=== PATIENT | female | born 1935 | race Caucasian/White ===

== ENCOUNTER 2023-07-10 10:10 | Outpatient (CLI) | payer MEDICARE, SELFPAY | END 2023-07-10 10:11 | disposition home or self-care (01) | LOC: AMB 07-11 15:20 | PROVIDERS: PCP Internal Medicine; Visit Provider Emergency Medicine | DX: R41.82 Altered mental status, unspecified (principal); R53.1 Weakness | CPT/HCPCS: A0425; A0429 ==

== ENCOUNTER 2023-07-10 10:52 | Inpatient (IN) | payer MEDICARE, SELFPAY ==
[2023-07-10] VITALS (20 sets, daily range): BP systolic 125–162; BP diastolic 72–89; PULSE 84–100; RESP 14–20; TEMP 36.4–37.2; O2SAT 93–99; BMI 22.7
--- NOTE | 2023-07-10 11:03 | CRLHL7_ITS ---
For Patients: As a result of the Century Cures Act, medical imaging exams and procedure reports are released immediately into your electronic medical record. You may view this report before your referring provider. If you have questions, please contact your health care provider. INDICATION: Fall, pain TECHNIQUE: Chest 1 view COMPARISON: None FINDINGS: Cardiac silhouette is enlarged. There is tortuosity of the aorta. Vascular calcifications are present. Artifact overlies the left upper arm. The clavicles are intact. Lungs clear. IMPRESSION: No acute findings. Dictated by Ky Odonnell MD @ 07/10/2023 12:42:54 PM (Electronically Signed)
--- NOTE | 2023-07-10 11:03 | CRLHL7_ITS ---
For Patients: As a result of the Century Cures Act, medical imaging exams and procedure reports are released immediately into your electronic medical record. You may view this report before your referring provider. If you have questions, please contact your health care provider. Indication: Fall Technique: AP pelvis Comparison: None Findings: No fracture is present. Spurring at the iliac crests. Degenerative changes lower lumbar spine. Mild spurring both hip joints. Intact pubic rami. Impression: No sign of acute injury. Dictated by Ky Odonnell MD @ 07/10/2023 12:42:07 PM (Electronically Signed)
--- NOTE | 2023-07-10 11:04 | CRLHL7_ITS ---
For Patients: As a result of the Century Cures Act, medical imaging exams and procedure reports are released immediately into your electronic medical record. You may view this report before your referring provider. If you have questions, please contact your health care provider. INDICATION: falls, pain COMPARISON: none TECHNIQUE: A CT volumetric acquisition was performed of the brain without IV contrast. Please note that all CT scans at this facility use dose modulation, iterative reconstruction, and/or weight-based dosing when appropriate to reduce radiation dose to as low as reasonably achievable. 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 Mild bilateral sinus disease in the maxillary sinuses with mucosal thickening. There is no fracture. No hemorrhage. No midline shift or mass effect. No hydrocephalus. Chronic patchy areas of decreased attenuation in the white matter. IMPRESSION: No intracranial hemorrhage. Please note that all CT scans at this facility use dose modulation, iterative reconstruction, and/or weight-based dosing when appropriate to reduce radiation dose to as low as reasonably achievable. Dictated by Ky Odonnell MD @ 07/10/2023 12:46:22 PM (Electronically Signed)
--- NOTE | 2023-07-10 11:23 | ED.FALL ---
HPI - Fall General Date Seen: 07/10/23 Chief Complaint: Fall/Minor Trauma Stated Complaint: Fall Time Seen by Provider: 07/10/23 11:01 Source: patient, EMS, RN notes reviewed and old records reviewed Mode of arrival: EMS Limitations: altered mental status History of Present Illness HPI Narrative: Patient is 88-year-old female who presents here from the [facility] assisted living, with a history of dementia who was more confused and falls. She comes in by EMS, glucose was 140. She complains to me that she is in no pain, history of the falls, both yesterday and today. She was actually found on the floor. Was probably there all night. EMS did get her up and walker to the caught. And brought her in here. She tells me she does not really remember what went on, denies being in any pain currently. No history of fevers chills nausea vomiting. History is obviously MD complaint: fall Fall from: standing Fall witnessed: no Place fall occurred: home Prolonged down time: yes Context: history of frequent falls Related Data Allergies Allergy/AdvReac Type Severity Reaction Status Date / Time codeine Allergy Verified 07/10/23 11:12 Review of Systems Status of ROS: Reports: 10 or more systems reviewed and unremarkable except as noted in History and below PFSH PFS Social History Smoking Status: Unknown if ever smoked Exam Narrative: Exam Narrative: Patient is seen in room 3 she appears to be in no distress, pleasant alert. Speaking to me normally, no obvious facial droops. No evidence of any trauma over head, or neck. Her pupils are equal round reactive and she tracks normally and follows my commands. Mouth opening is normal, her chest is good air entry bilaterally, kyphosis is noted. Heart sounds no clicks murmurs or gallops. Abdomen shows scars from previous open cholecystectomy, lower incision, no tenderness to palpation, bowel sounds are normal, slightly obese abdomen. Pelvis is normal stable she has bruising on the right lateral hip region, and also over her medial side of her upper right leg. Moves her hips however noted through normal range of motion of flexion internal external rotation. She is incontinent of stool. Const: Vital Signs, click to edit/add: Vital Signs - 24 hr 07/10/23 11:06 07/10/23 11:29 07/10/23 11:30 Temperature 98.9 F Pulse Rate 86 88 Pulse Rate [Pulse Oximeter] 88 Respiratory Rate 14 Blood Pressure Blood Pressure [Ri ght Upper Arm] 145/89 H Pulse Oximetry 97 97 96 Oxygen Delivery Me thod Room Air 07/10/23 11:47 07/10/23 11:50 07/10/23 12:00 Temperature Pulse Rate 86 86 85 Pulse Rate [Pulse Oximeter] Respiratory Rate Blood Pressure 149/73 H Blood Pressure [Ri ght Upper Arm] Pulse Oximetry 98 98 97 Oxygen Delivery Me thod 07/10/23 12:01 07/10/23 12:02 07/10/23 12:22 Temperature Pulse Rate 84 87 90 Pulse Rate [Pulse Oximeter] Respiratory Rate Blood Pressure 162/76 H Blood Pressure [Ri ght Upper Arm] Pulse Oximetry 97 97 96 Oxygen Delivery Me thod 07/10/23 12:30 07/10/23 12:45 07/10/23 13:53 Temperature Pulse Rate 87 87 92 Pulse Rate [Pulse Oximeter] Respiratory Rate Blood Pressure Blood Pressure [Ri ght Upper Arm] Pulse Oximetry 97 95 99 Oxygen Delivery Me thod 07/10/23 13:57 07/10/23 14:00 07/10/23 14:01 Temperature Pulse Rate 93 89 93 Pulse Rate [Pulse Oximeter] Respiratory Rate Blood Pressure 140/72 H 125/81 Blood Pressure [Ri ght Upper Arm] Pulse Oximetry 97 97 98 Oxygen Delivery Me thod 07/10/23 14:17 07/10/23 15:01 07/10/23 16:01 Temperature Pulse Rate 100 Pulse Rate [Pulse Oximeter] Respiratory Rate Blood Pressure 131/84 132/77 Blood Pressure [Ri ght Upper Arm] Pulse Oximetry 96 Oxygen Delivery Me thod Documenting provider has reviewed patient's vital signs: yes Course Course Hospital Course: Discussed patient with the family, and also hospitalist, with med her with a diagnosis of weakness, falls, and decompensation, she is requiring more care than she can get an assisted living, discussed with them her POLST await results of urine catheterization Vital Signs Vital signs: Initial Vital Signs Temperature 98.9 F 07/10/23 11:06 Temperature Source Temporal Artery Scan 07/10/23 11:06 Pulse Rate 88 07/10/23 11:06 Respiratory Rate 14 07/10/23 11:06 Blood Pressure 145/89 H 07/10/23 11:06 Blood Pressure Mean 107 H 07/10/23 11:06 Blood Pressure Position Semi-Fowlers 07/10/23 11:06 Pulse Oximetry 97 07/10/23 11:06 Oxygen Delivery Method Room Air 07/10/23 11:06 Vital Signs Temperature 98.9 F 07/10/23 11:06 Pulse Rate 88 07/10/23 11:06 Respiratory Rate 14 07/10/23 11:06 Blood Pressure 145/89 H 07/10/23 11:06 Pulse Oximetry 97 07/10/23 11:06 Oxygen Delivery Method Room Air 07/10/23 11:06 Temperature 98.9 F 07/10/23 11:06 Pulse Rate 100 07/10/23 14:17 Respiratory Rate 14 07/10/23 11:06 Blood Pressure 132/77 07/10/23 16:01 Pulse Oximetry 96 07/10/23 14:17 Oxygen Delivery Method Room Air 07/10/23 11:06 MDM - Fall MDM Narrative Medical decision making narrative: Multiple differential diagnoses were considered for altered mental status. The life-threatening differential diagnosis considered include: Meningitis/encephalitis, bacteremia, subdural, cerebrovascular accident, SAH, and hypertensive encephalopathy. Other differential diagnosis included include medication effect, hypoxia, hypoglycemia, hypercalcemia, hypo or hypernatremia, hypothyroidism, hepatic encephalopathy, carbon monoxide poisoning, UTI, pneumonia, depression, seizure, as well as other etiologies. Medical Records Attestation: I reviewed the patient's medical records. Lab Data Attestation: I reviewed the patient's lab results. Labs: Lab Results 07/10/23 07/10/23 Range/Units 11:55 12:07 WBC 10.44 (4.50-11.00) K/uL RBC 4.81 (4.00-5.20) m/uL Hgb 15.0 (12.0-16.0) gm/dL Hct 44.7 (33.0-51.0) % MCV 93 (80-100) fL MCH 31 (26-34) pg MCHC 34 (32-36) gm/dL RDW Coeff of Mookie 12.3 (11.5-15.5) % Plt Count 339 (140-440) K/uL Neut % (Auto) 79.4 H (42.0-72.0) % Lymph % (Auto) 10.0 L (20-44) % [place] % (Auto) 9.4 (0.0-11.0) % Eos % (Auto) 0.6 (0.0-7.0) % Baso % (Auto) 0.2 (0.0-3.0) % Neut # (Auto) 8.30 H (1.7-7.0) K/uL Lymph # (Auto) 1.00 (0.90-2.90) K/uL [place] # (Auto) 1.00 H (0.00-0.90) K/UL Eos # (Auto) 0.06 (0.00-0.50) K/uL Baso # (Auto) 0.02 (0.00-0.30) K/uL Abs Immat Gran (auto) 0.04 (0.00-0.30) K/uL Imm/Tot Granulo (auto) 0.4 % Sodium 140 (135-149) mmol/L Potassium 3.7 (3.6-5.1) mmol/L Chloride 100 (96-114) mmol/L Carbon Dioxide 30 (20-32) mmol/L BUN 21 (7-30) mg/dL Creatinine 0.5 (0.5-1.5) mg/dL Estimated Creat Clear 32.79 Estimated GFR 91 ml/min Glucose 109 (60-115) mg/dL Lactate 1.6 (0.5-1.9) mmol/L Calcium 9.3 (8.4-10.6) mg/dL Total Creatine Kinase 2169 H (41-117) U/L Imaging Data CT scan - head: Attestation: I have reviewed the pertinent imaging results. My impression: Negative head CT, chest x-ray, pelvic x-ray Radiologist's impression: Patient: MARISOL BRADFORD Facility:?[facility] Patient ID:?[id number] Site Patient ID:?[id number]. Site :?[id number] Study:?XRay Shoulder Left -07/10/2023 1:16:00 PM Ordering Physician:Kurt Davies Final Report: Indication: Trauma and pain Technique: Left shoulder 3 views. Comparison: None Findings: Narrowing and spurring are present at the acromioclavicular joint. Chronic density adjacent to the greater tuberosity. Osteopenia. No fracture. Impression: No sign of acute injury. Dictated by Ky Odonnell MD @ 07/10/2023 1:22:12 PM (Electronic Signature) atient: [facility] Facility:?[facility] Patient ID:?[id number] Site Patient ID:?[id number]. Site :?[id number] Study:?XRay Extremity Right FEMUR-07/10/2023 1:16:22 PM Ordering Physician:Kurt Davies Final Report: Indication: Fall, pain Technique: Two views right femur Comparison: None Findings: Osteopenia. No fracture. Degenerative changes. Chronic distal quadriceps tendinosis. No joint effusion. Impression: No sign of acute injury. Dictated by Ky Odonnell MD @ 07/10/2023 1:22:56 PM (Electronic Signature) Patient: [facility] Facility:?[facility] Patient ID:?[id number] Site Patient ID:?[id number]. Site :?[id number] Study:?XRay Pelvis 1 VIEW-07/10/2023 11:47:07 AM Ordering Physician:Kurt Davies Final Report: Indication: Fall Technique: AP pelvis Comparison: None Findings: No fracture is present. Spurring at the iliac crests. Degenerative changes lower lumbar spine. Mild spurring both hip joints. Intact pubic rami. Impression: No sign of acute injury. Dictated by Ky Odonnell MD @ 07/10/2023 12:42:07 PM (Electronic Signature) Patient: [facility] Facility:?[facility] Patient ID:?[id number] Site Patient ID:?[id number]. Site :?[id number] Study:?XRay Chest 1 VIEW-07/10/2023 11:47:30 AM Ordering Physician:Kurt Davies Final Report: INDICATION: Fall, pain TECHNIQUE: Chest 1 view COMPARISON: None FINDINGS: Cardiac silhouette is enlarged. There is tortuosity of the aorta. Vascular calcifications are present. Artifact overlies the left upper arm. The clavicles are intact. Lungs clear. IMPRESSION: No acute findings. Dictated by Ky Odonnell MD @ 07/10/2023 12:42:54 PM (Electronic Signature) Patient: MARISOL BRADFORD Facility:?[facility] Patient ID:?[id number] Site Patient ID:?[id number]. Site :?[id number] Study:?CT Head w/o-07/10/2023 11:49:10 AM Ordering Physician:Kurt Davies Final Report: INDICATION: falls, pain COMPARISON: none TECHNIQUE: A CT volumetric acquisition was performed of the brain without IV contrast. Please note that all CT scans at this facility use dose modulation, iterative reconstruction, and/or weight-based dosing when appropriate to reduce radiation dose to as low as reasonably achievable. 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 Mild bilateral sinus disease in the maxillary sinuses with mucosal thickening. There is no fracture. No hemorrhage. No midline shift or mass effect. No hydrocephalus. Chronic patchy areas of decreased attenuation in the white matter. IMPRESSION: No intracranial hemorrhage. Please note that all CT scans at this facility use dose modulation, iterative reconstruction, and/or weight-based dosing when appropriate to reduce radiation dose to as low as reasonably achievable. Dictated by Ky Odonnell MD Discharge Plan Discharge Clinical Impression: Falls frequently, Weakness, Dementia Patient Disposition: Admitted As Observation Condition: Stable Follow Up/Referrals: Libertad Cuba MD [Primary Care Provider] -
[2023-07-10 12:00] LABS: Lactate* 1.6 mmol/L (0.5-1.9)
[2023-07-10] MEDS: 0.9 % SODIUM CHLORIDE 1000 ml 1,000 ML IV (12:00)
--- NOTE | 2023-07-10 12:09 | ED.NURSE ---
Pt has approx palm-sized bruise on her inner Right thigh. Pt has redness on bilateral anterior knees.
[2023-07-10 12:16] LABS: Basophils Absolute Auto 0.02 K/uL (0.00-0.30); Basophils Percent Auto 0.2 % (0.0-3.0); Eosinophils Absolute Auto 0.06 K/uL (0.00-0.50); Eosinophils Percent Auto 0.6 % (0.0-7.0); Hematocrit 44.7 % (33.0-51.0); Immature Granulocytes Abs Auto 0.04 K/uL (0.00-0.30); Immature Granulocytes Pct Auto 0.4 %; Mean Corpuscular HGB Conc 34 gm/dL (32-36); Mean Corpuscular Hemoglobin 31 pg (26-34); Mean Corpuscular Volume 93 fL (80-100); Monocytes Percent Auto 9.4 % (0.0-11.0); Neutrophils Percent Auto 79.4 % (42.0-72.0); Platelet Count* 339 K/uL (140-440); RDW Coefficient of Variation % 12.3 % (11.5-15.5); Red Blood Count 4.81 m/uL (4.00-5.20); White Blood Count* 10.44 K/uL (4.50-11.00)
--- NOTE | 2023-07-10 12:24 | ED.NURSE ---
Addendum entered by Luis Manuel Garcia RN 07/10/23 13:05: notified of findings. Original Note: Dental Chair Assembler noted that pt had dried stool on right side of mid-back, on bottom, on bilateral calves, and between toes of right foot. Dried stool debris cleaned off of pt with shagufta wipes and washcloths. Small area of redness noted on back of pt's Right shoulder, additional small area of bruising noted on outside of pt's Right thigh, and moderate area of redness noted on back of pt's Left shoulder. Pt did complain of pain in back and Left shoulder when she was turned and cleaned.
[2023-07-10 12:28] LABS: Slide Review Reflex No
[2023-07-10 12:33] LABS: Chloride* 100 mmol/L (96-114); Potassium* 3.7 mmol/L (3.6-5.1); Sodium* 140 mmol/L (135-149)
--- NOTE | 2023-07-10 12:35 | ED.NURSE ---
Pt's daughter at bedside.
[2023-07-10 12:36] LABS: Blood Urea Nitrogen* 21 mg/dL (7-30); Calcium* 9.3 mg/dL (8.4-10.6); Carbon Dioxide* 30 mmol/L (20-32); Creatinine* 0.5 mg/dL (0.5-1.5); Est. Creatinine Clearance* 32.79; Estimated Glomerular Filt Rate 91 ml/min; Glucose* 109 mg/dL (60-115)
[2023-07-10 12:44] LABS: Creatine Kinase* 2169 U/L (41-117)
--- NOTE | 2023-07-10 12:45 | CRLHL7_ITS ---
For Patients: As a result of the Cures Act, medical imaging exams and procedure reports are released immediately into your electronic medical record. You may view this report before your referring provider. If you have questions, please contact your health care provider. Indication: Fall, pain Technique: Two views right femur Comparison: None Findings: Osteopenia. No fracture. Degenerative changes. Chronic distal quadriceps tendinosis. No joint effusion. Impression: No sign of acute injury. Dictated by Ky Odonnell MD @ 07/10/2023 1:22:56 PM (Electronically Signed)
--- NOTE | 2023-07-10 12:45 | CRLHL7_ITS ---
For Patients: As a result of the Century Cures Act, medical imaging exams and procedure reports are released immediately into your electronic medical record. You may view this report before your referring provider. If you have questions, please contact your health care provider. Indication: Trauma and pain Technique: Left shoulder 3 views. Comparison: None Findings: Narrowing and spurring are present at the acromioclavicular joint. Chronic density adjacent to the greater tuberosity. Osteopenia. No fracture. Impression: No sign of acute injury. Dictated by Ky Odonnell MD @ 07/10/2023 1:22:12 PM (Electronically Signed)
--- NOTE | 2023-07-10 13:59 | P.IMHP_ITS ---
Hospitalist- H&P: HPI History of Present Illness Date Seen: 07/10/23 Chief complaint: Fall Narrative: Teresa Sellers is a 88 year old female with past medical history of dementia presenting for evaluation of fall. hx obtained from chart review. Per report patient had unwitnessed fall last night; unsure if she hit her head. She was too weak to get up. She presented to ED where CT head, Xray left should, Xray pelvis, Xray right femur, CXR showed no acute findings. She was admitted for further evaluation. Ultimately her UA was positive for bacteruria. She was started on ceftriaxone. Family believe she needs SNF and lont term NH placement ultimately. Study:?XRay Shoulder Left -07/10/2023 1:16:00 PM Impression: No sign of acute injury. Study:?XRay Extremity Right FEMUR-07/10/2023 1:16:22 PM Impression: No sign of acute injury. Study:?XRay Pelvis 1 VIEW-07/10/2023 11:47:07 AM Findings: No fracture is present. Spurring at the iliac crests. Degenerative changes lower lumbar spine. Mild spurring both hip joints. Intact pubic rami. Impression: No sign of acute injury. Study:?XRay Chest 1 VIEW-07/10/2023 11:47:30 AM IMPRESSION: No acute findings. Study:?CT Head w/o-07/10/2023 11:49:10 AM IMPRESSION: No intracranial hemorrhage. Review of Systems Status of ROS: Reports: unobtainable due to medical condition PFSH PFS Social History What is your current living situation?: I presently have a place to live Problems where you live: no known problems Problems where you live details: NA In the past 12 months, utilities in danger of being shut off: no In the past 12 mos, have been you worried that your food would run out before you had money to buy more?: never true In the past 12 mos, the food you bought just didn't last and you didn't have money to buy more?: never true Highest level of school completed/degree received: 12th grade, no diploma Smoking Status: Former smoker What tobacco products do you use: cigarettes Smoking quit date/years: >15 years ago Do you use any of these nicotine containing products: None Second hand tobacco smoke exposure: No How often do you have a drink containing alcohol: 4 or more times a week Alcohol type: beer Alcohol type details: Rommel Coats How many standard drinks containing alcohol do you have on a typical day: 1 or 2 How often do you have six or more drinks on one occasion: Never AUDIT-C Alcohol total score: 4 Non-prescribed substance use: denies use Caffeine: Yes How often does anyone, including family, friends and others, physically hurt you : never How often does anyone, including family, friends and others, insult or talk down to you: never How often does anyone, including family, friends and others, threaten you with harm: never How often does anyone, including family, friends and others, scream or curse at you: never service: No Meds Home Medications and Allergies Home Medications Medication Instructions Recorded Confirmed Type No Known Home Medications 07/10/23 07/10/23 History Allergies Allergy/AdvReac Type Severity Reaction Status Date / Time codeine Allergy Verified 07/10/23 11:12 Exam Narrative: Exam Narrative: Gen: no acute distress HEENT: NCAT EOMI mmm Neck: Supple CV: RRR normal s1 s2 Lungs: CTAB Abd: Soft,nt, nd Neuro: Alert, oriented, CN grossly intact; nonfocal screening?exam Psych: appropriate affect MSK: age appropriate muscle mass Skin; Warm, dry no rash on face Const: Vital Signs, click to edit/add: Vital Signs - 24 hr 07/10/23 11:06 07/10/23 11:29 07/10/23 11:30 Temperature 98.9 F Pulse Rate 86 88 Pulse Rate [Pulse Oximeter] 88 Respiratory Rate 14 Blood Pressure Blood Pressure [Ri ght Upper Arm] 145/89 H Pulse Oximetry 97 97 96 Oxygen Delivery Me thod Room Air 07/10/23 11:47 07/10/23 11:50 07/10/23 12:00 Temperature Pulse Rate 86 86 85 Pulse Rate [Pulse Oximeter] Respiratory Rate Blood Pressure 149/73 H Blood Pressure [Ri ght Upper Arm] Pulse Oximetry 98 98 97 Oxygen Delivery Me thod 07/10/23 12:01 07/10/23 12:02 07/10/23 12:22 Temperature Pulse Rate 84 87 90 Pulse Rate [Pulse Oximeter] Respiratory Rate Blood Pressure 162/76 H Blood Pressure [Ri ght Upper Arm] Pulse Oximetry 97 97 96 Oxygen Delivery Me thod 07/10/23 12:30 07/10/23 12:45 Temperature Pulse Rate 87 87 Pulse Rate [Pulse Oximeter] Respiratory Rate Blood Pressure Blood Pressure [Ri ght Upper Arm] Pulse Oximetry 97 95 Oxygen Delivery Me od Hospitalist - H&P: Result Labs Labs: Short CBC 07/10/23 Range/Units 12:07 WBC 10.44 (4.50-11.00) K/uL Hgb 15.0 (12.0-16.0) gm/dL Hct 44.7 (33.0-51.0) % Plt Count 339 (140-440) K/uL BMP 07/10/23 12:07 Sodium 140 Potassium 3.7 Chloride 100 Carbon Dioxide 30 BUN 21 Creatinine 0.5 Glucose 109 Calcium 9.3 Cardiac Enzymes 07/10/23 Range/Units 12:07 Total Creatine Kinase 2169 H (41-117) U/L Assessment and Plan Assessment and plan (1) UTI (urinary tract infection): Status: Acute (2) Falls frequently: Status: Acute (3) Rhabdomyolysis: Status: Acute (4) Dementia: Status: Acute (5) Weakness: Status: Acute Plan Assessment Teresa Sellers is a 88 year old female with past medical history of dementia presenting for evaluation of fall. hx obtained from chart review. Per report patient had unwitnessed fall last night; unsure if she hit her head. She was too weak to get up. She presented to ED where CT head, Xray left should, Xray pelvis, Xray right femur, CXR showed no acute findings. She was admitted for further evaluation. Ultimately her UA was positive for bacteruria. She was started on ceftriaxone. Family believe she needs SNF and lont term NH placement ultimately. 1. Generalized weakness, frequent falls, suspected UTI 2. Acute Rhabdo Plan -start ceftriaxone -f/u UCx -IVF -trend CK -PT, OT, SW consult Code-DNR/DNI DVT ppx -heparin subq
[2023-07-10 16:03] LABS: Appearance Urine Slightly Cloudy (Clear); Bilirubin Urine Negative (Negative); Blood Urine 2+ (Negative); Color Urine Yellow (Yellow); Glucose Urine Negative (Negative); Ketones Urine 3+ (Negative); Leukocyte Esterase Urine Trace (Negative); Nitrite Urine Positive (Negative); Protein Urine 2+ (Negative); Specific Gravity Urine >= 1.030 (1.000-1.030); Urobilinogen Urine 0.2 (0.2-1.0); pH Urine 5.5 (5.0-8.5)
[2023-07-10 16:25] LABS: Amorphous Sediment Urine Moderate; Bacteria Urine Moderate; RBC Urine 0-2 (0-2); Squamous Epithelial Cell Urine Moderate (None-Few); WBC Urine 25-50 (0-5)
--- NOTE | 2023-07-10 16:32 | ED.NURSE ---
Report called to M/S RN.
--- NOTE | 2023-07-10 18:30 | PC.NURSE ---
End of Shift: Pt admitted to Med Surg via ED d/t fall at AL. Pt was reportedly on the ground for numerous hours before being found. Skin breakdown noted on left shoulder, right shoulder, bilateral knees, bruising inside right thigh from a previous fall. Pt is alert to self but confused at other times. Unaware of surroundings and who people are. Pleasantly confused. IV in right wrist placed by ED, patent and intact. Pt's family at bedside. Pt transfers with walker, gait belt and 2 assist depending on how weak she is. Pt's daughter reports confusion worsening over the last two months. Tolerating regular diet well. One ambulation to toilet, no void or BM.
[2023-07-10] MEDS: cefTRIAXone 1 GM in 0.9 % SODIUM CHLORIDE Mini-bag 100 ML IVPB (19:33)
[2023-07-10] MEDS: SODIUM CHLORIDE 0.9 % (FLUSH) 10 ML SYRINGE 5 ML IVF (20:15)
[2023-07-10] MEDS: 0.9 % SODIUM CHLORIDE 1000 ml 1,000 ML 125 ML IV (23:23)
[2023-07-10] MEDS: 0.9 % SODIUM CHLORIDE 1000 ml 1,000 ML 500 ML IV (23:23)
[2023-07-10] MEDS: HEPARIN 5,000 UNIT/0.5 ML INJ 5000 UNIT SUBCUT (23:33)
[2023-07-11] VITALS (7 sets, daily range): BP systolic 132–179; BP diastolic 65–85; PULSE 84–89; RESP 18–22; TEMP 36.6–36.9; O2SAT 93–99
[2023-07-11 06:43] LABS: Basophils Absolute Auto 0.03 K/uL (0.00-0.30); Basophils Percent Auto 0.4 % (0.0-3.0); Eosinophils Absolute Auto 0.13 K/uL (0.00-0.50); Eosinophils Percent Auto 1.7 % (0.0-7.0); Hematocrit 37.3 % (33.0-51.0); Hemoglobin* 12.4 gm/dL (12.0-16.0); Immature Granulocytes Abs Auto 0.03 K/uL (0.00-0.30); Immature Granulocytes Pct Auto 0.4 %; Lymphocytes Percent Auto 16.4 % (20-44); Mean Corpuscular HGB Conc 33 gm/dL (32-36); Mean Corpuscular Hemoglobin 32 pg (26-34); Mean Corpuscular Volume 95 fL (80-100); Monocytes Percent Auto 8.9 % (0.0-11.0); Neutrophils Percent Auto 72.2 % (42.0-72.0); Platelet Count* 298 K/uL (140-440); RDW Coefficient of Variation % 12.8 % (11.5-15.5); Red Blood Count 3.93 m/uL (4.00-5.20); White Blood Count* 7.76 K/uL (4.50-11.00)
--- NOTE | 2023-07-11 06:47 | PC.NURSE ---
End of shift: Alert to self. VSS w/ sats >90% on RA. Denies pain. A1 w/ walker and gait belt. Turn and repo while in bed. Had 1 large inc loose stool. Pt had one wet brief with minimal amount of urine in it. Bladder scanned at 0345 for 553ml. Straight cathed for 550ml at 0345. Pt was able to sleep throughout the night. Bed alarm in place.
[2023-07-11 07:01] LABS: Slide Review Reflex No
[2023-07-11 07:02] LABS: Chloride* 109 mmol/L (96-114); Sodium* 139 mmol/L (135-149)
[2023-07-11 07:05] LABS: Blood Urea Nitrogen* 15 mg/dL (7-30); Calcium* 8.4 mg/dL (8.4-10.6); Carbon Dioxide* 23 mmol/L (20-32); Creatine Kinase* 984 U/L (41-117); Creatinine* 0.5 mg/dL (0.5-1.5); Est. Creatinine Clearance* 31.35; Estimated Glomerular Filt Rate 91 ml/min; Glucose* 92 mg/dL (60-115)
[2023-07-11 07:28] LABS: Potassium* 2.9 mmol/L (3.6-5.1)
[2023-07-11] MEDS: POTASSIUM BICARB 25 MEQ EFFERVESCENT TAB 50 MEQ PO (08:34)
[2023-07-11] MEDS: ACETAMINOPHEN 325 MG TABLET 650 MG PO ×2 (08:34→18:37)
[2023-07-11] MEDS: HEPARIN 5,000 UNIT/0.5 ML INJ 5000 UNIT SUBCUT ×2 (08:35→20:38)
--- NOTE | 2023-07-11 10:10 | PM.IMPN1 ---
Progress Note: A&P Assessment and plan (1) Rhabdomyolysis: Status: Acute (2) UTI (urinary tract infection): Status: Acute (3) Dementia: Status: Acute (4) Weakness: Status: Acute (5) Falls frequently: Status: Acute (6) Hypokalemia: Status: Acute (7) Hypertension: Status: Acute Plan Assessment Teresa Sellers is a 88 year old female with past medical history of dementia presenting for evaluation of fall. hx obtained from chart review. Per report patient had unwitnessed fall last night; unsure if she hit her head. She was too weak to get up. She presented to ED where CT head, Xray left should, Xray pelvis, Xray right femur, CXR showed no acute findings. She was admitted for further evaluation. Ultimately her UA was positive for bacteruria. She was started on ceftriaxone. Family believe she needs SNF and lont term NH placement ultimately. 1. Generalized weakness, frequent falls, suspected UTI 2. Acute Rhabdo, CK trending down 2100 ->980 Plan -continue ceftriaxone -f/u UCx -IVF -trend CK -PT, OT, SW consult -potassium replaced -repeat K; check mg -prn IV hydralazine Code-DNR/DNI DVT ppx -heparin subq Family communication-Daughter and her updated with plan Dispo-pending UCx and therapy recs likely 1-2 days Subjective Date Seen: 07/11/23 Interval history: daughter and her at bedside Patient more alert today started on ceftriaxone for presumed UTI family feel patient needs SNF and ultimately NH no acute events overnight tolerating diet Exam Narrative: Exam Narrative: Gen: no acute distress HEENT: NCAT EOMI mmm CV: RRR normal s1 s2 Lungs: CTAB Abd: Soft,nt, nd Neuro: Alert, nonfocal screening?exam Psych: appropriate affect MSK: age appropriate muscle mass Skin; Warm, dry no rash on face Const: Vital Signs, click to edit/add: Vital Signs - 24 hr 07/10/23 11:06 07/10/23 11:29 07/10/23 11:30 Temperature 98.9 F Pulse Rate 86 88 Pulse Rate [Left P ulse Oximeter] Pulse Rate [Pulse Oximeter] 88 Respiratory Rate 14 Blood Pressure Blood Pressure [Ri ght Arm] Blood Pressure [Ri ght Upper Arm] 145/89 H Pulse Oximetry 97 97 96 Oxygen Delivery Me thod Room Air 07/10/23 11:47 07/10/23 11:50 07/10/23 12:00 Temperature Pulse Rate 86 86 85 Pulse Rate [Left P ulse Oximeter] Pulse Rate [Pulse Oximeter] Respiratory Rate Blood Pressure 149/73 H Blood Pressure [Ri ght Arm] Blood Pressure [Ri ght Upper Arm] Pulse Oximetry 98 98 97 Oxygen Delivery Me thod 07/10/23 12:01 07/10/23 12:02 07/10/23 12:22 Temperature Pulse Rate 84 87 90 Pulse Rate [Left P ulse Oximeter] Pulse Rate [Pulse Oximeter] Respiratory Rate Blood Pressure 162/76 H Blood Pressure [Ri ght Arm] Blood Pressure [Ri ght Upper Arm] Pulse Oximetry 97 97 96 Oxygen Delivery Me thod 07/10/23 12:30 07/10/23 12:45 07/10/23 13:53 Temperature Pulse Rate 87 87 92 Pulse Rate [Left P ulse Oximeter] Pulse Rate [Pulse Oximeter] Respiratory Rate Blood Pressure Blood Pressure [Ri ght Arm] Blood Pressure [Ri ght Upper Arm] Pulse Oximetry 97 95 99 Oxygen Delivery Me thod 07/10/23 13:57 07/10/23 14:00 07/10/23 14:01 Temperature Pulse Rate 93 89 93 Pulse Rate [Left P ulse Oximeter] Pulse Rate [Pulse Oximeter] Respiratory Rate Blood Pressure 140/72 H 125/81 Blood Pressure [Ri ght Arm] Blood Pressure [Ri ght Upper Arm] Pulse Oximetry 97 97 98 Oxygen Delivery Me thod 07/10/23 14:17 07/10/23 15:01 07/10/23 16:01 Temperature Pulse Rate 100 Pulse Rate [Left P ulse Oximeter] Pulse Rate [Pulse Oximeter] Respiratory Rate Blood Pressure 131/84 132/77 Blood Pressure [Ri ght Arm] Blood Pressure [Ri ght Upper Arm] Pulse Oximetry 96 Oxygen Delivery Me thod 07/10/23 17:11 07/10/23 17:11 07/10/23 19:31 Temperature 97.6 F Pulse Rate Pulse Rate [Left P ulse Oximeter] 93 95 Pulse Rate [Pulse Oximeter] Respiratory Rate 16 20 18 Blood Pressure Blood Pressure [Ri ght Arm] 135/76 131/79 Blood Pressure [Ri ght Upper Arm] Pulse Oximetry 97 93 95 Oxygen Delivery Me thod Room Air Room Air Room Air 07/11/23 00:04 07/11/23 03:30 07/11/23 08:30 Temperature 98.1 F 98.2 F 98.2 F Pulse Rate Pulse Rate [Left P ulse Oximeter] 84 86 87 Pulse Rate [Pulse Oximeter] Respiratory Rate 20 18 22 Blood Pressure Blood Pressure [Ri ght Arm] 154/85 H 155/82 H 179/81 H Blood Pressure [Ri ght Upper Arm] Pulse Oximetry 98 98 99 Oxygen Delivery Me thod Room Air Room Air Room Air Labs Labs: Laboratory Results - last 24 hr 07/10/23 07/10/23 07/10/23 11:55 12:07 Unknown WBC 10.44 RBC 4.81 Hgb 15.0 Hct 44.7 MCV 93 MCH 31 MCHC 34 RDW Coeff of Mookie 12.3 Plt Count 339 Neut % (Auto) 79.4 H Lymph % (Auto) 10.0 L [place] % (Auto) 9.4 Eos % (Auto) 0.6 Baso % (Auto) 0.2 Neut # (Auto) 8.30 H Lymph # (Auto) 1.00 [place] # (Auto) 1.00 H Eos # (Auto) 0.06 Baso # (Auto) 0.02 Abs Immat Gran (auto) 0.04 Imm/Tot Granulo (auto) 0.4 Sodium 140 Potassium 3.7 Chloride 100 Carbon Dioxide 30 BUN 21 Creatinine 0.5 Estimated Creat Clear 32.79 Estimated GFR 91 Glucose 109 Lactate 1.6 Calcium 9.3 Total Creatine Kinase 2169 H Urine Color Yellow Urine Appearance Slightly Cloudy A Urine pH 5.5 Ur Specific Bode >= 1.030 Urine Protein 2+ A Urine Glucose (UA) Negative Urine Ketones 3+ A Urine Blood 2+ A Urine Nitrite Positive A Urine Bilirubin Negative Urine Urobilinogen 0.2 Ur Leukocyte Esterase Trace A Urine RBC 0-2 Urine WBC 25-50 A Ur Squamous Epith Cells Moderate A Amorphous Sediment Moderate A Urine Bacteria Moderate A 07/11/23 06:01 WBC 7.76 RBC 3.93 L Hgb 12.4 Hct 37.3 MCV 95 MCH 32 MCHC 33 RDW Coeff of Mookie 12.8 Plt Count 298 Neut % (Auto) 72.2 H Lymph % (Auto) 16.4 L [place] % (Auto) 8.9 Eos % (Auto) 1.7 Baso % (Auto) 0.4 Neut # (Auto) 5.60 Lymph # (Auto) 1.30 [place] # (Auto) 0.70 Eos # (Auto) 0.13 Baso # (Auto) 0.03 Abs Immat Gran (auto) 0.03 Imm/Tot Granulo (auto) 0.4 Sodium 139 Potassium 2.9 L* Chloride 109 Carbon Dioxide 23 BUN 15 Creatinine 0.5 Estimated Creat Clear 31.35 Estimated GFR 91 Glucose 92 Lactate Calcium 8.4 Total Creatine Kinase 984 H Urine Color Urine Appearance Urine pH Ur Specific Bode Urine Protein Urine Glucose (UA) Urine Ketones Urine Blood Urine Nitrite Urine Bilirubin Urine Urobilinogen Ur Leukocyte Esterase Urine RBC Urine WBC Ur Squamous Epith Cells Amorphous Sediment Urine Bacteria
[2023-07-11] MEDS: 0.9 % SODIUM CHLORIDE 1000 ml 1,000 ML 75 ML IV (10:11)
[2023-07-11 11:19] LABS: Magnesium* 1.9 mg/dL (1.5-2.6)
--- NOTE | 2023-07-11 12:34 | PC.SOCIAL ---
Met with pt., daughter Chiquita at [phone] and son-in-law to discuss discharge plans. Pt. lives at [facility] but due to weakness and increased confusion needs a rehab stay. Families first choice is [facility] or [facility] in [place]. If they are full Chiquita wants to pursue facilities more in the [place] and [place] area. Daughter Chiquita wants to tour facility before pt. moves if she cannot be placed at [facility] or [facility]. 1. [facility] has 1 female bed and is assessing 2. [facility]-Message left on availability and pt.'s information was faxed.
[2023-07-11 17:36] LABS: Potassium* 3.2 mmol/L (3.6-5.1)
[2023-07-11] MEDS: levoFLOXacin 250 MG TABLET PO (18:37)
--- NOTE | 2023-07-11 18:48 | PC.NURSE ---
Pt up with Assist of 1, gait belt, and walker within the room. Pt alert to self and daughter, Chiquita. Pt is confused and unable to recall topics of personal care and home ADLs she is able to perform independently prior to admission. Pt reports low appetite eating 25-50% of each meal, denies N/V. Incontinent of bladder, wears brief. Tylenol given for general pain/discomfort, relief given per pt as well as pt's ability to sit in chair without complaint while daughter Chiquita visits. Waiting on DC plan and placement.
[2023-07-12] MEDS: ACETAMINOPHEN 325 MG TABLET 650 MG PO ×2 (01:33→08:38)
[2023-07-12 03:00] VITALS: BP 168/78; PULSE 77; RESP 20; TEMP 36.7; O2SAT 95
--- NOTE | 2023-07-12 06:33 | PC.NURSE ---
Alert to self. VSS w/ sats >90% on RA. Complains of back pain. PRN Tylenol given and aqua-k pad placed on back. X1 small inc void and x1 cont void. Urine is cloudy tin colored with a strong odor. A1 w/ walker and gait belt. Pt needed a lot of encouragement and prompting to use bedside commode. Turn and repo while in bed. Offering water and encouraging fluid intake. Bed alarm in place.
[2023-07-12 06:40] LABS: Basophils Absolute Auto 0.04 K/uL (0.00-0.30); Basophils Percent Auto 0.5 % (0.0-3.0); Eosinophils Absolute Auto 0.22 K/uL (0.00-0.50); Eosinophils Percent Auto 2.7 % (0.0-7.0); Hematocrit 38.5 % (33.0-51.0); Hemoglobin* 12.7 gm/dL (12.0-16.0); Immature Granulocytes Abs Auto 0.04 K/uL (0.00-0.30); Immature Granulocytes Pct Auto 0.5 %; Lymphocytes Percent Auto 20.8 % (20-44); Mean Corpuscular HGB Conc 33 gm/dL (32-36); Mean Corpuscular Hemoglobin 31 pg (26-34); Mean Corpuscular Volume 95 fL (80-100); Monocytes Percent Auto 8.9 % (0.0-11.0); Neutrophils Absolute Auto 5.45 K/uL (1.7-7.0); Neutrophils Percent Auto 66.6 % (42.0-72.0); Platelet Count* 316 K/uL (140-440); RDW Coefficient of Variation % 12.7 % (11.5-15.5); Red Blood Count 4.05 m/uL (4.00-5.20); White Blood Count* 8.18 K/uL (4.50-11.00)
[2023-07-12 06:48] LABS: Slide Review Reflex No
[2023-07-12 07:00] VITALS: BP 164/94; PULSE 85; RESP 20; TEMP 36.9; O2SAT 98
[2023-07-12 07:01] LABS: Chloride* 104 mmol/L (96-114); Potassium* 3.2 mmol/L (3.6-5.1); Sodium* 137 mmol/L (135-149)
[2023-07-12 07:04] LABS: Blood Urea Nitrogen* 12 mg/dL (7-30); Carbon Dioxide* 27 mmol/L (20-32); Creatine Kinase* 366 U/L (41-117); Creatinine* 0.4 mg/dL (0.5-1.5); Est. Creatinine Clearance* 31.35; Estimated Glomerular Filt Rate 96 ml/min; Glucose* 100 mg/dL (60-115)
[2023-07-12 07:05] LABS: Calcium* 8.4 mg/dL (8.4-10.6)
[2023-07-12] MEDS: HEPARIN 5,000 UNIT/0.5 ML INJ 5000 UNIT SUBCUT (08:42)
--- NOTE | 2023-07-12 10:15 | PM.IMPN1 ---
Progress Note: A&P Assessment and plan (1) UTI (urinary tract infection): Problem details: UCx growing Ecoli transitioned to levaquin on evening 07/11 Status: Acute Assessment and Plan: UCx growing Ecoli transitioned to levaquin on evening 07/11 (2) Hypertension: Problem details: adding lisinopril 07/12 Status: Acute (3) Hypokalemia: Problem details: continue potassium replacement as needed Status: Acute (4) Rhabdomyolysis: Problem details: Ck continues to trend down to 300s on 07/12 Status: Acute (5) Dementia: Status: Acute (6) Weakness: Status: Acute (7) Falls frequently: Status: Acute Plan Medically stable for discharge; awaiting placement Subjective Date Seen: 07/12/23 Interval history: patient lost IV last night transitioned to levaquin medically clear for discharge but awaiting placement CK continues to trend down hypokalemic again this morning replacement ordered daughter updated Exam Narrative: Exam Narrative: Gen: no acute distress HEENT: NCAT EOMI mmm CV: RRR normal s1 s2 Lungs: CTAB Abd: Soft,nt, nd Neuro: Alert, nonfocal screening?exam Psych: appropriate affect MSK: age appropriate muscle mass Const: Vital Signs, click to edit/add: Vital Signs - 24 hr 07/11/23 11:00 07/11/23 15:00 07/11/23 19:45 Temperature 98.4 F 98.3 F 97.8 F Pulse Rate [Left P ulse Oximeter] 87 89 84 Respiratory Rate 22 20 20 Blood Pressure [Ri ght Arm] 132/70 139/65 148/79 H Pulse Oximetry 99 96 95 Oxygen Delivery Me thod Room Air Room Air Room Air 07/11/23 23:25 07/12/23 03:00 Temperature 98.1 F 98.0 F Pulse Rate [Left P ulse Oximeter] 85 77 Respiratory Rate 18 20 Blood Pressure [Ri ght Arm] 142/69 H 168/78 H Pulse Oximetry 93 95 Oxygen Delivery Me thod Room Air Room Air Labs Labs: Laboratory Results - last 24 hr 07/11/23 07/11/23 07/11/23 06:01 11:01 17:19 WBC RBC Hgb Hct MCV MCH MCHC RDW Coeff of Mookie Plt Count Neut % (Auto) Lymph % (Auto) Bartholomew % (Auto) Eos % (Auto) Baso % (Auto) Neut # (Auto) Lymph # (Auto) Bartholomew # (Auto) Eos # (Auto) Baso # (Auto) Abs Immat Gran (auto) Imm/Tot Granulo (auto) Sodium Potassium 3.2 L Chloride Carbon Dioxide BUN Creatinine Estimated Creat Clear Estimated GFR Glucose Calcium Magnesium 1.9 Total Creatine Kinase Lab Acknowledgement Test Added 07/12/23 05:41 WBC 8.18 RBC 4.05 Hgb 12.7 Hct 38.5 MCV 95 MCH 31 MCHC 33 RDW Coeff of Mookie 12.7 Plt Count 316 Neut % (Auto) 66.6 Lymph % (Auto) 20.8 Bartholomew % (Auto) 8.9 Eos % (Auto) 2.7 Baso % (Auto) 0.5 Neut # (Auto) 5.45 Lymph # (Auto) 1.70 Bartholomew # (Auto) 0.70 Eos # (Auto) 0.22 Baso # (Auto) 0.04 Abs Immat Gran (auto) 0.04 Imm/Tot Granulo (auto) 0.5 Sodium 137 Potassium 3.2 L Chloride 104 Carbon Dioxide 27 BUN 12 Creatinine 0.4 L Estimated Creat Clear 31.35 Estimated GFR 96 Glucose 100 Calcium 8.4 Magnesium Total Creatine Kinase 366 H Lab Acknowledgement
--- NOTE | 2023-07-12 11:01 | PM.DS1 ---
DS: Providers Provider Date Seen: 07/12/23 Date of admission: 07/11/23 08:44 Primary care physician: Libertad Cuba MD Admitting Clinician: Hood Hutchins MD Consults: 07/10/23 17:41 Consult to Occupational Therapy [CONS] Routine Comment: Reason(s) for OT Consult:: Evaluate and Treat Any Restrictions?:: No Restrictions Consult to Physical Therapy [CONS] Routine Comment: Reason(s) for PT Consult:: Evaluate and Treat Any Restrictions?:: No Restrictions 07/11/23 10:36 Consult to Physical Therapy [CONS] Routine Comment: Reason(s) for PT Consult:: Balance Assessment Any Restrictions?:: No Restrictions Consult to Computer Networker [CONS] Routine Comment: Reason for Consult:: Discharge Planning Needs Attending Physician on discharge: Hood Hutchins MD Date of Discharge: 07/12/23 DS: Diagnosis Discharge Diagnosis (1) UTI (urinary tract infection): Status: Acute Problem details: UCx growing Ecoli transitioned to levaquin on evening 07/11 (2) Rhabdomyolysis: Status: Acute Problem details: Ck continues to trend down to 300s on 07/12 (3) Hypokalemia: Status: Acute Problem details: continue potassium replacement as needed DS: Summary Hospital Course Hospital Course: Hospitalist- H&P: HPI History of Present Illness Date Seen: 07/10/23 Chief complaint: Fall Narrative: Teresa Sellers is a 88 year old female with past medical history of dementia presenting for evaluation of fall. hx obtained from chart review. Per report patient had unwitnessed fall last night; unsure if she hit her head. She was too weak to get up. She presented to ED where CT head, Xray left should, Xray pelvis, Xray right femur, CXR showed no acute findings. She was admitted for further evaluation. Ultimately her UA was positive for bacteruria. She was started on ceftriaxone. Family believe she needs SNF and lont term NH placement ultimately. ? Progress Note: A&P Assessment and plan (1) UTI (urinary tract infection): Problem details: UCx growing Ecoli transitioned to levaquin on evening 07/11 Status: Acute Assessment and Plan: UCx growing Ecoli transitioned to levaquin on evening 07/11 (2) Hypertension: Problem details: adding lisinopril 07/12 Status: Acute (3) Hypokalemia: Problem details: continue potassium replacement as needed Status: Acute (4) Rhabdomyolysis: Problem details: Ck continues to trend down to 300s on 07/12 Status: Acute (5) Dementia: Status: Acute (6) Weakness: Status: Acute (7) Falls frequently: Status: Acute Time Spent with Patient Time attestation: Total time spent providing and/or coordinating discharge services: Exam Narrative: Exam Narrative: Gen: no acute distress HEENT: NCAT EOMI mmm Neck: Supple CV: RRR normal s1 s2 Lungs: CTAB Abd: Soft,nt, nd Neuro: Alert, oriented tp self ; nonfocal screening?exam Psych: appropriate affect MSK: age appropriate muscle mass Skin; Warm, dry no rash on face Const: Vital Signs, click to edit/add: Vital Signs - 24 hr 07/11/23 15:00 07/11/23 19:45 07/11/23 23:25 Temperature 98.3 F 97.8 F 98.1 F Pulse Rate [Left P ulse Oximeter] 89 84 85 Respiratory Rate 20 20 18 Blood Pressure [Ri ght Arm] 139/65 148/79 H 142/69 H Pulse Oximetry 96 95 93 Oxygen Delivery Me thod Room Air Room Air Room Air 07/12/23 03:00 Temperature 98.0 F Pulse Rate [Left P ulse Oximeter] 77 Respiratory Rate 20 Blood Pressure [Ri ght Arm] 168/78 H Pulse Oximetry 95 Oxygen Delivery Me thod Room Air DS: Data Data Completed and Pending Labs on day of discharge: Labs from last 24 hours 07/12/23 07/11/23 07/11/23 05:41 17:19 11:01 WBC 8.18 RBC 4.05 Hgb 12.7 Hct 38.5 MCV 95 MCH 31 MCHC 33 RDW Coeff of Mookie 12.7 Plt Count 316 Neut % (Auto) 66.6 Lymph % (Auto) 20.8 [place] % (Auto) 8.9 Eos % (Auto) 2.7 Baso % (Auto) 0.5 Neut # (Auto) 5.45 Lymph # (Auto) 1.70 [place] # (Auto) 0.70 Eos # (Auto) 0.22 Baso # (Auto) 0.04 Abs Immat Gran (auto) 0.04 Imm/Tot Granulo (auto) 0.5 Sodium 137 Potassium 3.2 L 3.2 L Chloride 104 Carbon Dioxide 27 BUN 12 Creatinine 0.4 L Estimated Creat Clear 31.35 Estimated GFR 96 Glucose 100 Calcium 8.4 Magnesium Total Creatine Kinase 366 H Lab Acknowledgement Test Added 07/11/23 06:01 WBC RBC Hgb Hct MCV MCH MCHC RDW Coeff of Mookie Plt Count Neut % (Auto) Lymph % (Auto) [place] % (Auto) Eos % (Auto) Baso % (Auto) Neut # (Auto) Lymph # (Auto) [place] # (Auto) Eos # (Auto) Baso # (Auto) Abs Immat Gran (auto) Imm/Tot Granulo (auto) Sodium Potassium Chloride Carbon Dioxide BUN Creatinine Estimated Creat Clear Estimated GFR Glucose Calcium Magnesium 1.9 Total Creatine Kinase Lab Acknowledgement Discharge Plan Discharge Disposition: [facility] Date of Admission: 07/11/23 08:44 Attending Provider on Discharge: Hood Hutchins Primary Care Provider: Libertad Cuba Condition: Stable Anticipated Discharge Date/Time: 07/12/23 10:53 Discharge Medications: New cefdinir 300 mg capsule 300 mg PO BID Qty: 10 0RF potassium chloride 20 mEq tablet,ER particles/crystals 20 meq PO DAILY Qty: 2 0RF Discharge Orders: Discharge Order (Routine); Ordered 07/12/23 Ordered By: Hood Hutchins Activity Level: Activity as Tolerated Discharge Diet: Regular Follow Up Appointments: Libertad Cuba MD [Primary Care Provider] - (potassium check on 07/13 PCP follow up 5 days and HTN management ) Admit to: SNF Discharge Potential: Good Length of Stay: <30 days Can use facility standing orders?: Yes Code Status: DNR/DNI Rehab Potential: Good Therapy: Physical Therapy and Occupational Therapy Therapy Orders: Evaluate and Treat Lab Orders: Potassium on 07/13 Orders are good >30 days: No Signature: Hood Hutchins
[2023-07-12 11:20] VITALS: BP 148/88; PULSE 93; RESP 20; TEMP 36.8; O2SAT 98
[2023-07-12 11:34] VITALS: BP 148/88; PULSE 93; RESP 20; TEMP 36.8
--- NOTE | 2023-07-12 13:17 | PC.SOCIAL ---
Pt. has been accepted to [address] [place] [address] and will discharge there today via non-emergency ambulance transport.
--- NOTE | 2023-07-12 14:27 | REH.OT ---
Pt refused OT attempt this AM, another discipline was in room at the time of OT attempt in PM. Will see again tomorrow.
== END 2023-07-12 12:30 | DRG 690 ==
LOC: ED 16:15 → MEDSURG 16:34
PROVIDERS: Admitting Provider Internal Medicine; Emergency Provider Family Medicine; PCP Internal Medicine; Visit Provider Hospitalist
DX: N39.0 Urinary tract infection, site not specified (principal); M62.82 Rhabdomyolysis; B96.20 Unspecified Escherichia coli [E. coli] as the cause of diseases classified elsewhere; W19.XXXA Unspecified fall, initial encounter; Z91.81 History of falling; F03.90 Unspecified dementia, unspecified severity, without behavioral disturbance, psychotic disturbance, mood disturbance, and anxiety; Y92.099 Unspecified place in other non-institutional residence as the place of occurrence of the external cause; E87.6 Hypokalemia; I10 Essential (primary) hypertension
CPT/HCPCS: 36415; 51702; 51798; 70450; 71045; 72170; 73030; 73552; 80048; 81001; 82550; 83605; 83735; 84132; 85025; 87081; 87086; 87186; 97110; 97116; 97162; 97165; 97535; 99284; 99285; A9270; G0378; J0696; J1644; J7030

== ENCOUNTER 2023-07-12 12:20 | Outpatient (CLI) | payer MEDICARE, SELFPAY | END 2023-07-12 12:21 | disposition home or self-care (01) | LOC: AMB 07-23 04:11 | PROVIDERS: PCP Internal Medicine; Visit Provider Family Medicine | DX: M25.551 Pain in right hip (principal) | CPT/HCPCS: A0425; A0428 ==